=== PATIENT | male | born 1990 | race Caucasian/White ===

== ENCOUNTER → 2020-03-01 | Outpatient (CLI) | payer BC ==
--- NOTE | 2020-03-01 15:58 | Diagnostic Imaging Report ---
INDICATION: Fall. Knee pain. COMPARISON: None. FINDINGS: Multiple radiographic views of the left knee joint demonstrate no acute fracture or dislocation. No focal osseous lesions are seen. No significant joint effusion is seen. The surrounding soft tissue structures are unremarkable. There are no radiopaque foreign bodies. IMPRESSION: 1. No acute fractures or dislocations of the left knee joint. Dictated by: Dictated on workstation # [id number]
== END ==
LOC: RAD FS 14:20
PROVIDERS: ATTEND Nurse Practitioner
DX: M25.562 Pain in left knee (principal)
CPT/HCPCS: 73562

== ENCOUNTER 2020-07-02 12:32 | Outpatient (RCR) | payer BC ==
[2020-07-02 13:45] LABS: SEMEN VOLUME 2.2 ML (1.5-5.0)
== END 2020-09-30 | disposition home or self-care (01) ==
LOC: LAB 12:32
PROVIDERS: ATTEND Nurse Practitioner Family
DX: N46.9 Male infertility, unspecified (principal)
CPT/HCPCS: 89320

== ENCOUNTER → 2020-07-18 | Outpatient (CLI) | payer BC | LOC: LAB 16:17 | PROVIDERS: ATTEND Urology | DX: N46.9 Male infertility, unspecified (principal); E29.1 Testicular hypofunction | CPT/HCPCS: 89320 ==

== ENCOUNTER → 2020-07-18 | Outpatient (CLI) | payer BC | LOC: LAB 16:16 | DX: Z53.9 Procedure and treatment not carried out, unspecified reason (principal) ==

== ENCOUNTER → 2020-07-23 | Outpatient (CLI) | payer BC ==
--- NOTE | 2020-07-23 09:21 | Diagnostic Imaging Report ---
INDICATION: INFERTILITY EVALUATION TECHNIQUE: Real-time grayscale sonographic imaging and color vascular evaluation of the scrotum. CORRELATION STUDY: None FINDINGS: RIGHT TESTICLE: 4.4 x 2.4 x 2.9 cm. LEFT TESTICLE: 4.4 x 2.2 x 3.0 cm. The testicles are in normal location and demonstrate homogeneous echotexture. There is vascular flow to the testicles. The epididymides appear unremarkable. IMPRESSION: 1. Unremarkable scrotal ultrasound examination. Dictated by: Dictated on workstation # [id number]
== END ==
LOC: RAD 09:00
PROVIDERS: ATTEND Urology
DX: N46.9 Male infertility, unspecified (principal)
CPT/HCPCS: 76870

== ENCOUNTER → 2020-10-18 | Outpatient (CLI) | payer SELFPAY | LOC: LAB 07:42 | PROVIDERS: ATTEND Urology | DX: E29.1 Testicular hypofunction (principal); N46.9 Male infertility, unspecified | CPT/HCPCS: 89320 ==

== ENCOUNTER → 2022-01-23 | Outpatient (CLI) | payer SELFPAY | LOC: LAB 10:02 | PROVIDERS: ATTEND Nurse Practitioner Family | DX: E29.1 Testicular hypofunction (principal) | CPT/HCPCS: 89320 ==